=== PATIENT | female | born 1960 | race Caucasian/White ===

== ENCOUNTER 2016-08-21 16:32 | Observation (INO) | payer OTHER ==
[~2016-08-21] VITALS: Ht 170.2 cm; Wt 58.2 kg
[~2016-08-21 16:32] MED LIST: ADVAIR HFA120 INHALA IH; AMBIEN5 MG PO; ASPIRIN EC325 MG PO; ATORVASTATIN CA80 MG PO; B COMPLEX #11 EACH PO; COMBIVENT RESPIM4 GM IH; DUONEB 2.5-0.5 M3 ML IH; ENDOCET 5-3251 EACH PO; ESOMEPRAZOLE MA40 MG PO; FLEXERIL10 MG PO; FLUTICASONE PRO16 GM BOTH NARES; HYDROXYCHLOROQ200 MG PO; LO-DOSE ASPIRIN81 M2 PO; MELADOX3 MG; MELOXICAM7.5 MG; METHOTREXATE2.5 M1 PO; MOBIC7.5 MG PO; NEXIUM40 MG; OTREXUP 1515 MG/0.4 IJ; PLAVIX75 MG PO; PREDNISONE20 M1 PO; PROLIA60 MG/1 ML SC; REGLAN10 MG; ROPINIROLE HCL0.5 MG PO; TUMS500 MG PO; VITAMIN D31000 UNI2 PO
[2016-08-21 17:38] LABS: HEMATOCRIT 37.6 % (36.0-46.0); MCH 30.4 PG (29.0-34.0); MCHC 33.8 G/DL (30.0-36.0); MEAN PLAT.VOLUME 9.5 uM^3 (9.5-12.4); PLATELET COUNT 236 K/uL (156-360); RED BLOOD COUNT 4.18 M/uL (3.80-5.20); WHITE BLOOD COUNT 5.5 K/uL (4.1-10.2)
[2016-08-21 17:49] LABS: CHLORIDE 104 mEq/L (99-109); POTASSIUM 3.5 mEq/L (3.7-5.4); SODIUM 138 mEq/L (136-147)
[2016-08-21 17:51] LABS: GLUCOSE 84 mg/dL (70-99)
[2016-08-21 17:52] LABS: ANION GAP 9 MEQ/L (2-14)
[2016-08-21 17:53] LABS: TOTAL BILIRUBIN 0.8 mg/dL (0.0-1.0)
[2016-08-21 17:55] LABS: ALKALINE PHOSPHATASE 97 IU/L (3-129); GFR ESTIMATE (CALCULATED) > 59 mL/min/
[2016-08-21 17:56] LABS: UREA NITROGEN (BUN) 8 mg/dL (9-23)
[2016-08-21 17:58] LABS: TROP-I INTERPRETATION NEGATIVE; TROPONIN-I < 0.01 ng/mL (0.0-0.30)
[2016-08-21 18:18] LABS: INTER. NORMALIZED RATIO 1.2; PTT 31.6 (25-32)
[2016-08-21] MEDS ORDERED: ROXICODONE5 MG PO (19:04)
[2016-08-21] MEDS ORDERED: EXCEDRIN MIGRA1 EAC3 PO (19:05)
[2016-08-21 20:00] LABS: TROP-I INTERPRETATION NEGATIVE; TROPONIN-I < 0.01 ng/mL (0.0-0.30)
[2016-08-21 20:49] VITALS: BP 122/68
[2016-08-21 23:18] VITALS: BP 130/65
[2016-08-22 02:14] LABS: TROP-I INTERPRETATION NEGATIVE; TROPONIN-I < 0.01 ng/mL (0.0-0.30)
[2016-08-22 04:00] VITALS: BP 121/57
[2016-08-22 07:34] VITALS: BP 120/60
[2016-08-22 07:50] LABS: HEMATOCRIT 35.5 % (36.0-46.0); MCH 31.3 PG (29.0-34.0); MCHC 33.8 G/DL (30.0-36.0); MCV 92.7 FL (83-99); MEAN PLAT.VOLUME 9.5 uM^3 (9.5-12.4); PLATELET COUNT 184 K/uL (156-360); RBC DIS.WIDTH-CV 14.3 % (11.8-14.6); RBC DIS.WIDTH-SD 47.2 % (39-53); RED BLOOD COUNT 3.83 M/uL (3.80-5.20); WHITE BLOOD COUNT 4.3 K/uL (4.1-10.2)
[2016-08-22 08:20] LABS: TROP-I INTERPRETATION NEGATIVE; TROPONIN-I < 0.01 ng/mL (0.0-0.30)
[2016-08-22 08:23] LABS: ALKALINE PHOSPHATASE 94 IU/L (3-129); ANION GAP 5 MEQ/L (2-14); CHLORIDE 107 MEQ/L (99-109); GFR ESTIMATE (CALCULATED) > 59 mL/min/; POTASSIUM 3.8 MEQ/L (3.7-5.4); SAMPLE HEMOLYSIS CHECK 0; SAMPLE ICTERIC CHECK 0; SAMPLE LIPEMIA CHECK 0; SODIUM 141 MEQ/L (136-147); TOTAL BILIRUBIN 0.4 MG/DL (0.0-1.0); UREA NITROGEN (BUN) 9 mg/dL (9-23)
[2016-08-22 08:24] LABS: GLUCOSE 119 mg/dL (70-99)
== END 2016-08-22 11:18 | disposition home or self-care (01) ==
LOC: EME 16:32 → 5WEST 19:23 → EDOF 19:23 → 5WEST 20:41
PROVIDERS: Internal Medicine; Physician Assistant
DX: R07.89 Other chest pain (principal); E87.6 Hypokalemia; J44.9 Chronic obstructive pulmonary disease, unspecified; I25.10 Atherosclerotic heart disease of native coronary artery without angina pectoris; M79.7 Fibromyalgia; E78.00 Pure hypercholesterolemia, unspecified; E78.5 Hyperlipidemia, unspecified; M06.9 Rheumatoid arthritis, unspecified; K21.9 Gastro-esophageal reflux disease without esophagitis; I25.2 Old myocardial infarction; G25.81 Restless legs syndrome; F17.210 Nicotine dependence, cigarettes, uncomplicated
CPT/HCPCS: 71020; 80053; 84484; 85027; 85610; 85730; 93005; 99281; 99285; G0378; J7030